=== PATIENT | female | born 1975 | race Caucasian/White ===

== ENCOUNTER 2017-12-06 15:22 | Emergency (ER) | payer OTHER ==
[~2017-12-06] VITALS: Ht 160 cm; Wt 62.6 kg
[2017-12-06] MEDS ORDERED: VENL37.5 PO ×2 (15:25→15:59)
[2017-12-06] MEDS ORDERED: Metoprolol-Hct1 EAC1 PO ×2 (15:28→15:59)
== END 2017-12-07 16:13 | disposition home or self-care (01) ==
LOC: ER 15:22
DX: Z76.0 Encounter for issue of repeat prescription (principal); I10 Essential (primary) hypertension; F41.9 Anxiety disorder, unspecified; F17.200 Nicotine dependence, unspecified, uncomplicated; Z79.899 Other long term (current) drug therapy
CPT/HCPCS: 99281